=== PATIENT | male | born 1955 | race Two or more races ===

== ENCOUNTER 2024-09-11 17:31 | Inpatient (IN) | payer OTHER ==
[~2024-09-11] VITALS: Ht 182.9 cm; Wt 81.6 kg
--- NOTE | 2024-09-11 18:42 | NUR ---
PACIENTE ALERTA Y ORIENTADO X 3. EL MISMO TIENE REFERIDO PARA EVALUACION Y/O TRATAMIENTO CON DRA KATT NELSON POR OBSTRUCTIVE RECTOSIGMOID TUMOR
[2024-09-11] MEDS ORDERED: 0.9 % SODIUM CHLORIDE 500 ML IV ONE (21:30)
[2024-09-11 21:59] LABS: HEMATOCRIT 45.5 % (39.0-48.0); MEAN CELL VOLUME 85.2 fL (80.0-100.00); MEAN CORPUSCULAR HGB CONC 32.9 g/dl (32.0-36.0); PLATELET COUNT 202 K/uL (150-450); RED BLOOD COUNT 5.34 M/uL (4.00-6.00); RED CELL DISTRIBUTION WIDTH 14.2 % (11.5-14.5)
[2024-09-11 22:23] LABS: INR 1.1; PARTIAL THROMBOPLASTIN TIME 25.5 SECONDS (22.0-34.0); PROTHROMBIN TIME 11.9 SECONDS (9.0-11.5)
[2024-09-11 22:27] LABS: ALBUMIN 4.1 gm/dL (3.4-5.0); BILIRUBIN TOTAL 1.4 mg/dL (0.3-1.2); CALCIUM 9.5 mg/dL (8.5-10.1); CREATININE SERUM 0.95 mg/dL (0.70-1.30); GFR 78.84; GLOBULINA 4.4 G/DL (2.4-3.5); POTASSIUM 3.54 mEq/L (3.5-5.1); TOTAL PROTEIN 8.5 gm/dL (6.4-8.2)
[2024-09-11] MEDS ORDERED: 0.9 % SODIUM CHLORIDE 1,000 ML IV SCH (22:30)
[2024-09-11] MEDS ORDERED: ONDANSETRON HCL 4 MG in 0.9 % SODIUM CHLORIDE 50 ML IV PRN (22:30)
[2024-09-11] MEDS ORDERED: ACETAMINOPHEN 500 MG GEL..CAP PO PRN (22:30)
[2024-09-12 00:26] LABS: BILIRUBIN TOTAL 1.22 mg/dL (0.3-1.2); BILIRUBIN,CONJUGATED 0.4 mg/dL (0.0-0.2); BILIRUBIN,UNCONJUGATED 0.82 mg/dL (0.0-0.6)
[2024-09-12 01:30] LABS: URINE APPEARANCE Clear; URINE BILIRRUBIN Small (NEGATIVE); URINE BLOOD Negative; URINE COLOR Dark Yellow; URINE GLUCOSE Negative (NEGATIVE); URINE LEUKOCYTE Small; URINE NITRATE Negative; URINE PROTEIN Negative (NEGATIVE)
[2024-09-12 01:34] LABS: URINE BACTERIA 46.5 uL (0.0-1933); URINE EPITHELIAL CELLS 7.7 uL (0.0-38.8); URINE RBC 3.9 uL (0.0-20.8)
[2024-09-12 01:35] LABS: URINE KETONE 40 (NEGATIVE)
[2024-09-12 01:37] LABS: ob POSITIVE (NEGATIVE)
[2024-09-12 08:00] VITALS: BP 115/65; O2SAT 95
[2024-09-12] MEDS ORDERED: FAMOTIDINE/PF 20 MG in 0.9 % SODIUM CHLORIDE 8 ML IV PUSH SCH (09:00)
[2024-09-12] MEDS ORDERED: ENOXAPARIN SODIUM 40 MG/0.4 ML SYRINGE SUBCUTANEO SCH (13:13)
[2024-09-12 16:00] VITALS: BP 130/75; O2SAT 95
[2024-09-12 19:27] LABS: CALCIUM 8.4 mg/dL (8.5-10.1); CHOL HDL RATIO 3.5 (0-5.0); CREATININE SERUM 0.8 mg/dL (0.70-1.30); GFR 96.13; POTASSIUM 3.71 mEq/L (3.5-5.1)
[2024-09-13 02:22] VITALS: BP 118/66; O2SAT 94
[2024-09-13 08:00] VITALS: BP 160/76; O2SAT 100
[2024-09-13 16:00] VITALS: BP 144/74; O2SAT 100
[2024-09-13] MEDS ORDERED: CAL PERIFERAL SCH (19:00)
[2024-09-13] MEDS ORDERED: LYTES PERIFERAL SCH (19:00)
[2024-09-13] MEDS ORDERED: [UNRECOGNIZED DRUG - OTHER] PERIFERAL SCH (19:00)
[2024-09-13] MEDS ORDERED: DEXTROSE 50 % IN WATER 0.5 G/ML DISP.SYRIN IV PRN (19:00)
[2024-09-13] MEDS ORDERED: DEXT PERIFERAL SCH (19:00)
[2024-09-13] MEDS ORDERED: DEXTROSE 5 % IN WATER 1,000 ML IV SCH (19:00)
[2024-09-13] MEDS ORDERED: AMINO ACIDS 4.25 %/DEXTROSE 5% 1,000 ML PERIFERAL SCH (19:56)
[2024-09-14] VITALS: BP 100/53; O2SAT 96
[2024-09-14 08:00] VITALS: BP 125/70; O2SAT 96
[2024-09-14 16:00] VITALS: BP 126/75; O2SAT 95
[2024-09-14] MEDS ORDERED: AA 4.25%/CAL/LYTES/DEXT 5% 1,000 ML PERIFERAL SCH (17:00)
[2024-09-15] VITALS: BP 108/64; O2SAT 94
[2024-09-15 09:00] VITALS: BP 126/62; O2SAT 95
== END 2024-09-15 14:09 | disposition home or self-care (01) | DRG 376 ==
LOC: ER 17:34 → SURH 22:27
PROVIDERS: Emergency Medicine; General Practice; Surgery; ADMIT Internal Medicine; ATTEND Internal Medicine
PROC: BB24YZZ Computerized Tomography (CT Scan) of Bilateral Lungs using Other Contrast (ICD-10-PCS; principal; 2024-09-12)
PROC: 02HV33Z Insertion of Infusion Device into Superior Vena Cava, Percutaneous Approach (ICD-10-PCS; 2024-09-12)
PROC: 0DBP8ZX Excision of Rectum, Via Natural or Artificial Opening Endoscopic, Diagnostic (ICD-10-PCS; 2024-09-15)
DX: C20 Malignant neoplasm of rectum (principal); K59.09 Other constipation; K62.89 Other specified diseases of anus and rectum